=== PATIENT | female | born 1945 | race American Indian/Alaskan Native ===

== ENCOUNTER 2017-03-17 07:46 | Day surgery (SDC) | payer MEDICARE, BC ==
[2017-03-17 08:07] VITALS: BMI 43.3
[2017-03-17] MEDS ORDERED: Sodium Chloride 0.9% 500 ML IV ONE ×2 (08:20)
[2017-03-17] MEDS ORDERED: ceFAZolin IV 2 gm in Dextrose 1 GM/50 ML BAG IVPB ONE (08:26)
[2017-03-17] MEDS ORDERED: Lidocaine 1% Inj (20ml) ONE (08:26)
[2017-03-17] MEDS ORDERED: Midazolam 2 MG/2 ML VIAL ONE ×2 (08:39→09:05)
[2017-03-17 08:58] LABS: POTASSIUM 4.7 mmol/L (3.6-5.2)
[2017-03-17 09:01] LABS: CALCIUM 8.5 mg/dl (8.6-10.4)
[2017-03-17] MEDS ORDERED: Oxycodone/Acetaminophen 5/325 mg Tab PO PRN (09:46)
[2017-03-17] MEDS ORDERED: HYDROmorphone 0.5 mg/0.5 ml ISec IVP PRN (09:48)
--- NOTE | 2017-03-17 09:55 | PCM.SURG1 ---
Surgeon's Initial Post Op Note - Surgeon's Notes Surgeon: Dr. Asencio Town Justice: Kim Comer, PGY2; Rony Álvarez OMS3 Pre-Operative Diagnosis: Exposed right arm AV fistula stent Operative Findings: See full report Post-Operative Diagnosis: same Operation Performed: Removal of right arm AV fistula stents Specimen/Specimens Removed: right AV fistula stent fragments Estimated Blood Loss: EBL {In ML}: 15 Date of Surgery/Procedure: 03/17/17 Time of Surgery/Procedure: 09:30
[2017-03-17 10:15] VITALS: TEMP 97.8
[2017-03-17 11:35] VITALS: BP 103/49; PULSE 80; RESP 18; O2SAT 98
--- NOTE | 2017-03-17 21:19 | OP ---
PROCEDURE DATE: 03/17/2017 PREOPERATIVE DIAGNOSIS: Exposed stent right upper arm, site of previous ruptured pseudoaneurysm. PROCEDURE: Removal of stent remnants and shunt remnants right upper extremity. SURGEON: Dr. Asencio. PRODUCTION PLANNING SUPERVISOR: Dr. Reyes, resident. TYPE OF ANESTHESIA: Local with sedation. ANESTHESIOLOGIST: . INDICATIONS: The patient is an older woman with renal insufficiency, presently dialyzed by means of prosthetic right arm shunt. Previously, she had had a ruptured pseudoaneurysm where someone had previously stented this. The stent was removed at that time; however, the remnants remained. These were poking through the skin, small segments. All visible metal areas were removed. The entire vein was not removed in which the stent was incorporated. At the end, we had approximately 2 cm wound and one portion of it was simply approximated both for hemostasis, and also to partially keep the wound open. After doing this the wound was dressed. Blood loss to the procedure was approximately 20 mL. There were no operative complications, no pus, etc, simply some areas of exposed shunt and stent, which were removed. The wound was then approximated and dressing was applied. The previous access was still capable of being used and was protected and not visualized during the procedure. Abimael Asencio Jr., MD cc: and Dr. Dennison.
== END 2017-03-17 11:40 | disposition home or self-care (01) ==
LOC: C.SDS 07:46
PROVIDERS: ATTEND Surgery Vascular Surgery
DX: T82.49XA Other complication of vascular dialysis catheter, initial encounter (principal); N18.6 End stage renal disease
CPT/HCPCS: 36415; 37197; 80048; 88300; J0690; J2250; J3010; J7040